=== PATIENT | female | born 1965 | race Caucasian/White ===

== ENCOUNTER 2022-06-10 14:03 | Emergency (ER) | payer OTHER ==
[~2022-06-10] VITALS: Ht 157.5 cm; Wt 77.9 kg
--- NOTE | 2022-06-10 18:45 | EKG ---
[facility] [address] [facility] [place], [place] [address] Signed Normal sinus rhythm Low voltage QRS Septal infarct , age undetermined Abnormal ECG No previous ECGs available Confirmed by KENDY DAVIS MD ([id number]) on 06/10/2022 6:45:23 PM Electronically Signed By: KENDY DAVIS MD 06/10/22 1845 PATIENT NAME: PACO CRAIN Electrocardiogram DATE OF : 63 PHYSICIAN: KENDY DAVIS MD REPORT #: [id number] REPORT IS CONFIDENTIAL AND NOT TO BE RELEASED WITHOUT AUTHORIZATION
--- NOTE | 2022-06-11 14:08 | OR ---
[facility] [address], [place] [address] Signed DATE OF OPERATION: 06/10/2022 SURGEON: Jose Quick MD TIME: 08:20 p.m. PREOPERATIVE DIAGNOSES: 1. Right greater than left symptomatic pleural effusion. 2. Advanced breast cancer. POSTOPERATIVE DIAGNOSES: 1. Right greater than left symptomatic pleural effusion. 2. Advanced breast cancer. PROCEDURE: Right thoracentesis (2 L). ANESTHESIA: 1% lidocaine. INDICATION: A 56-year-old white woman with essentially nontreated inflammatory breast cancer (had naturopathic treatment including IV vitamin C infusion and hyperbaric oxygen), presented to the emergency room and evaluated by Dr. Lamine Avalos with severe dyspnea. Chest x-ray and CT scan confirms large right pleural effusion and smaller left pleural effusion with miliary changes in the right lung suggestive of metastatic disease. I have recommended a thoracentesis to improve her ventilatory status and provide for cytologic evaluation of the pleural fluid. The risks of bleeding, infection, pneumothorax, and failure to cure her symptoms were all reviewed with her, she understands and wished to proceed. FINDINGS: Surprisingly clear yellow straw-colored fluid was noted from the right pleural space. Nearly 2 L of fluid was extracted. Characteristic cough and some chest pain were noted as the lungs expanded, but quickly abated within 5 minutes at conclusion of the procedure. A postprocedure chest x-ray is pending. DESCRIPTION OF PROCEDURE: The patient was placed in upright position with the arms draped over a [place] stand and Electronically Signed By: JOSE QUICK MD 06/11/22 1408 PATIENT NAME: PACO CRAIN OPERATIVE REPORT DATE OF : 63 REPORT #: [id number] PHYSICIAN: JOSE QUICK MD PCP: MARNIE MILTON REPORT IS CONFIDENTIAL AND NOT TO BE RELEASED WITHOUT AUTHORIZATION [facility] [address], [place] [address] Signed pillows. The tip of the scapula was identified and marked. The posterior thorax was prepared with a chlorhexidine solution and draped sterilely. Using sterile glove gown, etc., the tip of the scapula was identified and local anesthetic 1% lidocaine was injected over this and ultimately identifying the 7th rib. Entry to the pleural space just above the rib showed straw-colored fluid. Using a thoracentesis catheter kit, the pleural space was accessed and straw-colored fluid was withdrawn. Using and enclosed tube devices and , 2 L of fluid were withdrawn. To my surprise, the fluid was rather clear, certainly not bloody and without sign of turbidity or infectious change. The patient did experience chest pain upon expansion of the lung as well as some dyspnea, which quickly abated upon cessation of the procedure. A Band-Aid was applied. A chest x-ray is pending. MD NIRU Ngo/SEA /[id number] cc: MD Marnie Mendoza [place], [place] Copies: LAMINE AVALOS MD ~ Electronically Signed By: JOSE QUICK MD 06/11/22 1408 PATIENT NAME: PACO CRAIN OPERATIVE REPORT DATE OF : 63 REPORT #: [id number] PHYSICIAN: JOSE QUICK MD PCP: MARNIE MILTON REPORT IS CONFIDENTIAL AND NOT TO BE RELEASED WITHOUT AUTHORIZATION
--- NOTE | 2022-06-11 14:08 | CONS ---
[facility] [address] [place], [place] [address] Signed DATE OF CONSULTATION: 06/10/2022 REQUESTING PHYSICIAN: Dr. Avalos. PROBLEM: Right greater than left significant symptomatic pleural effusion. HISTORY OF PRESENT ILLNESS: This 56-year-old white woman has been diagnosed with inflammatory breast cancer within the past year. She was seen by multiple various providers in [place] and elsewhere including a "breast expert surgeon" and medical oncologist. She was noted to have inflammatory changes of the right breast and diagnosed with inflammatory breast cancer. She had a core biopsy that proved this. All of this was elsewhere and there are no records available to confirm or deny this. She was recommended for conventional therapy to include chemotherapy, probable radiation therapy, ultimately to undergo surgical intervention. She was disinclined to such an intervention and instead opted for "alternative medicine," which included vitamin C infusions and hyperbaric oxygen therapy performed elsewhere. She paid out of pocket for these interventions. She was at that time without any health insurance. She has since been enrolled in the [place] [employer] and sees a local provider (Marnie Canales), who had, in fact, assumed her for primary care and recommended that she undergo a PET scan, which was organized in [place] and subsequently changed to be in [place], so it will be "full body." The patient has had variable levels of dyspnea over the past two months and has a pulse oximetry device herself and has noted O2 saturations as low as 60% on several occasions. She became more and more dyspneic this evening and presented to the emergency room at [facility] where she was evaluated by Dr. Avalos. She was not in extreme distress by any means, but was certainly not feeling well. LABORATORY STUDIES: Showed a normal white count of 6.0, hematocrit of 45.4, platelets of 409,000. Chem profile essentially normal with a creatinine of 0.64 and a magnesium of 1.7, and liver enzymes normal. A subsequent CT scan was performed after chest x-ray showed a rather large right pleural effusion. The CT scan findings included a large right pleural effusion with partial collapse of the right lower and middle lobe and moderate left effusion and interlobular septal thickening. A left suprahilar consolidation versus Electronically Signed By: JOSE QUICK MD 06/11/22 1408 PATIENT NAME: PACO CRAIN CONSULTATION DATE OF : 63 REPORT #: [id number] PHYSICIAN: JOSE QUICK MD PCP: MARNIE CANALES REPORT IS CONFIDENTIAL AND NOT TO BE RELEASED WITHOUT AUTHORIZATION [facility] [address] [place], [place] [address] Signed soft tissue thickening either atelectatic or metastatic was not identified as well. Left upper lobe 8 mm nodule with surrounding ground-glass changes was noted and focal pericardial nodule also noted. She had diffuse right breast skin thickening in the right breast, soft tissue nodularity and a 9 mm lesion in the liver and hepatic segment. The patient has improved with supplemental oxygen provided in the emergency room setting. O2 saturation is 96% on 4 L. She denies any hemoptysis or bone pain. She has had no weight loss. SOCIAL HISTORY: She lives in [place], [place], previously in the [facility]. She has seven children in total, three more recently adopted, the youngest of which is 11 years old. She does not work outside the home. Her is at home with the children at this time. 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 REVIEW OF SYSTEMS: She has shortness of breath while not on supplemental oxygen. She has had no hemoptysis. She has extreme exertional dyspnea. Denies any blood per rectum. She has had no nipple discharge. Erythema of her right breast, which was present in the past has largely resolved. PHYSICAL EXAMINATION: GENERAL: Pleasant white woman is alert and oriented. She has a nasal cannula oxygen in place. HEENT: She does not have jugular venous distention or tracheal deviation. LUNGS: Chest sounds are diminished on the right and normal on the left. ABDOMEN: Obese, but soft. There is no sign of ascites. She has no focal tenderness. BREASTS: Exam in the presence of the nurse (charge nurse) shows edematous changes of the breast, but no sign of inflammation or erythema. There is diffuse thickening in the central and lateral aspect of the breast. She does have one slightly enlarged right axillary lymph node. Left breast is normal. EXTREMITIES: Show no clubbing, cyanosis, or edema. ASSESSMENT: The patient likely has stage IV breast cancer based on her clinical appearance. She has no signs of congestive heart failure or other causes for development of significant right pleural effusion. There appeared to be miliary changes within the right lung parenchyma. Most likely the effusion represents malignant effusion. I discussed all this with the patient. Notably, the patient-- with my permission-- recorded the encounter so she could review that with her . Electronically Signed By: JOSE QUICK MD 06/11/22 1408 PATIENT NAME: PACO CRAIN CONSULTATION DATE OF : 63 REPORT #: [id number] PHYSICIAN: JOSE QUICK MD PCP: MARNIE CANALES REPORT IS CONFIDENTIAL AND NOT TO BE RELEASED WITHOUT AUTHORIZATION [facility] [address] [place], [place] [address] Signed If the effusion is malignant it will almost certainly recur and relatively soon. Palliative options in this situation would include pleurodesis. I also discussed the advisability of more conventional management including chemotherapy for which she is now open to the concept. I have offered right-sided thoracentesis for acute management of her pleural effusion. Her primary provider of the [facility], Marnie Canales, would need to organize a referral for medical oncologist and referral also for other interventions, possibly to include Port-A-Cath placement and/or palliative right pleurodesis. It is my hope that she will be relieved for acute problem enough that she may return to her home and ponder further the options we have discussed. As regards of thoracentesis, the risks of bleeding, infection, failure to improve her symptoms and other unforeseen complications were reviewed in detail. She understands and wished to proceed. MD NIRU Ngo/SEA /[id number] cc: EVELIN [place], [place] Lamine Avalos MD Copies: LAMINE AVALOS MD ~ Electronically Signed By: JOSE QUICK MD 06/11/22 1408 PATIENT NAME: PACO CRAIN CONSULTATION DATE OF : 63 REPORT #: [id number] PHYSICIAN: JOSE QUICK MD PCP: MARNIE CANALES REPORT IS CONFIDENTIAL AND NOT TO BE RELEASED WITHOUT AUTHORIZATION
== END 2022-06-10 21:42 | disposition home or self-care (01) ==
LOC: ED 14:03
DX: J90 Pleural effusion, not elsewhere classified (principal); C50.911 Malignant neoplasm of unspecified site of right female breast
CPT/HCPCS: 36415; 71045; 71260; 80053; 83735; 83880; 84484; 85025; 88305; 88312; 88341; 88342; 93005; 93010; 99285-25; Q9967

== ENCOUNTER 2022-07-09 07:48 | Day surgery (SDC) | payer OTHER ==
[~2022-07-09] VITALS: Ht 165.1 cm; Wt 72.7 kg
--- NOTE | 2022-07-09 14:16 | NUR ---
07/09/22 1416 Sheets,Mckenzie 1400 PT ARRIVED TO PACU ON 15L VIA NONREBREATHER, PT ASLEEP. 1403 PT WAKES TO TACTILE STIMULI AND O2 REMOVED. PT REPORTS PAIN 11/05.
[2022-07-09] MEDS ORDERED: IBUPROFEN600 MG PO (14:27)
[2022-07-09] MEDS ORDERED: OXYCODON-ACETA1 EAC2 PO (14:27)
[2022-07-09] MEDS ORDERED: ACETAMINOPHEN500 MG PO (14:27)
--- NOTE | 2022-07-14 08:10 | OR ---
[facility] [address] [place], [place] [address] Signed DATE OF OPERATION: 07/09/2022 SURGEON: Jose Quick MD PREOPERATIVE DIAGNOSES: 1. Malignant pleural effusion (symptomatic), right greater than left. 2. History of metastatic breast cancer. 3. INflammatory breast cancer right breast POSTOPERATIVE DIAGNOSES: 1. Malignant pleural effusion (symptomatic), right greater than left. 2. History of metastatic breast cancer. 3. Inflammatory breast cancer right breast PROCEDURE: Placement of right PleurX catheter. Withdrawal 1.2 L of fluid. ANESTHESIA: Local with monitored anesthesia care, John Virgen CRNA and local 10 mL of 0.25% Marcaine with epinephrine. INDICATION: This 56-year-old white woman is a patient of Marnie Canales of [facility]. I saw her in the emergence room on June 10, 2022 for newly diagnosed significant right pleural effusion related to probable metastatic breast cancer. She had been seen many months previously with clinical findings of inflammatory breast cancer and saw 2 medical oncologists and a surgical oncologist and ultimately declined conventional therapy including chemotherapy, radiation therapy and surgery and instead underwent self-directed vitamin C infusion at [facility] and hyperbaric oxygen in [place], [place]. She presented to the emergency room where I saw her for significant shortness of breath and performed a palliative right-sided thoracentesis. 1.8 L were withdrawn and she did have improvement of her oxygenation and subjective sense of dyspnea. She was referred to Dr. Asif. The pleural fluid was evaluated when obtained and found consistent with adenocarcinoma consistent with metastatic breast cancer. Her evaluation by Dr. Asif was such that she declined more conventional palliative therapy. Home oxygen therapy was initiated and consideration for hospice enrollment was also made. Dr. Asif did recommend a PleurX catheter to assist in her palliative interventions. I have discussed this with the patient. I had previously discussed the possibility of pleurodesis by conventional methods of thoracoscopy as well as chest tube Electronically Signed By: JOSE QUICK MD 07/14/22 0810 PATIENT NAME: PACO CRAIN OPERATIVE REPORT DATE OF : 63 REPORT #: [id number] PHYSICIAN: JOSE QUICK MD PCP: MARNIE CANALES REPORT IS CONFIDENTIAL AND NOT TO BE RELEASED WITHOUT AUTHORIZATION [facility] [address] [place] [id number] Signed related pleurodesis but under these circumstances, the PleurX catheter is reasonable and may have some effect for pleurodesis as well. The risk of bleeding, infection, pneumothorax, failure of the catheter, and other unforeseen complications related to placement of PleurX catheter was reviewed with her. She understands and wished to proceed. FINDINGS: As before, straw-colored clear yellow fluid was noted. 1100 mL were withdrawn with a PleurX catheter without problem. A postprocedure chest x-ray showed the catheter to be directed in the superior medial position. She tolerated the procedure well. DESCRIPTION OF PROCEDURE: Chest x-ray was performed a few days ago, which confirmed bilateral pleural effusion and some atelectatic changes in the base of the lungs bilaterally. She was taken to the operating room and given IV sedation. Preoperative antibiotic Ancef was given. Sequential compression device stockings were used and heparin subcutaneously administered. The right chest and arm and so forth were prepared with a chlorhexidine solution and draped sterilely. Notable wer peau d'orange changes of the right breast and a dense mass in the central breast. There appeared no active inflammation at this time however. Palpation of the lateral chest wall did define ribs which were without sign of deformity or other problem. On the right lateral chest wall at the level of the right nipple local anesthetic 0.25% Marcaine with epinephrine was injected transversely at the probable 6th rib. A small incision was made and using an aspiration technique with enclosed angiocatheter device in the PleurX catheter kit, the pleural space was entered directly over the 6th rib. Clear fluid was noted. A flexible J-wire was passed down the angiocatheter into the pleural space without resistance. Several cm away, additional local anesthetic was injected and a transverse incision made. Using the tunneling catheter, the catheter was delivered from the exit site to the entry point, securing the cuff a cm or so into the incision site itself. The wire which emanated from the chest wall was then dilated and subsequently dilator and peel-away sheath introducer and passed over the wire with all due care, removing the wire and the dilator. Egress of straw-colored fluid was pronounced. The catheter full-length was then placed into the peel-away sheath introducer and without resistance passed into the pleural space. The peel-away sheath introducer was Electronically Signed By: JOSE QUICK MD 07/14/22 0810 PATIENT NAME: PACO CRAIN OPERATIVE REPORT DATE OF : 63 REPORT #: [id number] PHYSICIAN: JOSE QUICK MD PCP: MARNIE CANALES REPORT IS CONFIDENTIAL AND NOT TO BE RELEASED WITHOUT AUTHORIZATION [address] [address] Signed removed. The adapter device was applied to the catheter and 1100 mL of straw colored pleural fluid withdrawn. The entry site to the chest was secured with interrupted 3-0 Vicryl. Steri-Strips were applied. The catheter exiting from the chest was secured with enclosed silk suture. Only 1100 mL was withdrawn from the pleural space, but at conclusion of the suction withdrawal at 60 mmHg from the right pleural space, the catheter was coiled and the enclosed. Biologic dressing applied as was a clear adherent dressing. The patient tolerated the procedure well, was allowed to emerge from sedation and taken to the recovery room in good condition. Evaluation in the recovery room showed the pleural catheter to be medially and superiorly directed and without sign of problem. There was no evidence of pneumothorax. She tolerated the procedure well. MD NIRU Ngo/SEA /[id number] cc: MD Marnie Beyer PA Copies: BERT ASIF MD, JUDITH PA ~ Electronically Signed By: JOSE QUICK MD 07/14/22 0810 PATIENT NAME: PACO CRAIN OPERATIVE REPORT DATE OF : 63 REPORT #: [id number] PHYSICIAN: JOSE QUICK MD PCP: MARNIE CANALES REPORT IS CONFIDENTIAL AND NOT TO BE RELEASED WITHOUT AUTHORIZATION
== END 2022-07-09 15:38 | disposition home or self-care (01) ==
LOC: DS 07:48
PROVIDERS: ATTEND Surgery
PROC: 0W1 Anatomical Regions, General, Bypass (ICD-10-PCS; principal; 2022-07-09 08:45)
DX: C50.911 Malignant neoplasm of unspecified site of right female breast (principal); C79.9 Secondary malignant neoplasm of unspecified site; J91.0 Malignant pleural effusion
CPT/HCPCS: 71045; J0330; J0690; J1644; J1885; J2250; J2405; J2704; J3010; J7121

== ENCOUNTER 2022-08-04 14:26 | Emergency (ER) | payer OTHER ==
[~2022-08-04] VITALS: Ht 165.1 cm; Wt 72.9 kg
[~2022-08-04 14:26] MED LIST: ACETAMINOPHEN500 MG PO; IBUPROFEN600 MG PO; OXYCODON-ACETA1 EAC2 PO
[2022-08-04] MEDS ORDERED: POTASSIUM CHLO10 ME1 PO (14:37)
[2022-08-04] MEDS ORDERED: FUROSEMIDE20 MG PO (14:37)
[2022-08-06] MEDS ORDERED: ZOLPIDEM TARTRA10 MG PO (11:14)
[2022-08-06] MEDS ORDERED: HYDROXYZINE HCL25 MG PO (11:14)
[2022-08-06] MEDS ORDERED: CEPHALEXIN500 MG PO (11:15)
--- NOTE | 2022-08-07 06:48 | EKG ---
[facility] [address] [facility] [place], [place] [address] Signed Sinus tachycardia Septal infarct (cited on or before 10-JUN-2022) Abnormal ECG When compared with ECG of 10-JUN-2022 14:42, No significant change was found Confirmed by KENDY DAVIS MD ([id number]) on 08/07/2022 6:48:01 AM Electronically Signed By: KENDY DAVIS MD 08/07/22 0648 PATIENT NAME: PACO CRAIN Electrocardiogram DATE OF : 63 PHYSICIAN: KENDY DAVIS MD REPORT #: [id number] REPORT IS CONFIDENTIAL AND NOT TO BE RELEASED WITHOUT AUTHORIZATION
== END 2022-08-04 19:14 | disposition home or self-care (01) ==
LOC: ED 14:26
DX: J90 Pleural effusion, not elsewhere classified (principal); Z85.3 Personal history of malignant neoplasm of breast; I50.9 Heart failure, unspecified; Z79.899 Other long term (current) drug therapy
CPT/HCPCS: 36415; 71045; 80053; 83735; 83880; 84484; 85025; 85379; 93005; 93010; 99285-25